=== PATIENT | female | born 1955 | race Caucasian/White ===

== ENCOUNTER 2016-07-04 12:54 | Inpatient (IN) | payer BC ==
--- NOTE | ~2016-07-04 | DS ---
Discharge Summary [place] [address] [facility] [place]. [address] NAME: MURIEL RAMOS : 51 STATUS : DIS IN PAT#: [id number] AGE: 60 ADM/REG DATE : 07/04/16 MR#: [id number] REPORT SERV DATE: 07/12/16 DICTATED BY: DEXTER PEREZ DATE: 07/11/16 REPORT STATUS : Draft TRANSCRIBED BY: MODL DATE: 07/11/16 ADMISSION DATE: 07/04/2016 DISCHARGE DATE: 07/11/2016 DISCHARGE DIAGNOSES: 1. Acute on chronic hypoxemic respiratory failure requiring intubation, mechanical ventilation. 2. Acute on chronic systolic and diastolic congestive heart failure with echocardiographic ejection fraction of 31%. Moderate left ventricular diastolic dysfunction. 3. Acute exacerbation of chronic obstructive pulmonary disease. 4. Per Intensive Care physician, likely septic shock present on admission. 5. Oropharyngeal dysphagia. 6. Chronic anemia. 7. Coronary artery disease, post coronary artery bypass graft x1. 8. Previous mitral valve replacement, with adequately functioning mitral valve prosthesis on echocardiography. 9. Moderate aortic stenosis by echocardiography. 10.Chronic pain disorder. 11.Weight loss. 12.History of PICC-induced deep venous thrombosis. 13.History of Clostridium difficile. 14.History of fibromyalgia. 15.History of bipolar disorder. 16.History of duodenal ulcer. OPERATION/PROCEDURES: Intubation and mechanical ventilation. HISTORY OF PRESENT ILLNESS: This is a 60-year-old white female who was triaged in the emergency room on 07/04/2016, at 1205 hours. In the emergency room, she was immediately seen by Dr. Michele Garcia. The patient was writhing on the stretcher. She was screaming for help. She was severely tachypneic and pereyra. She had extensive perioral cyanosis. Her O2 saturation was said to be 32% on a non-rebreather. Rapid sequence intubation was done. She was placed on mechanical ventilation. Critical Care was consulted, and she was seen by Dr. Jovi Schneider and admitted as described on admission history and physical examination. ADDITIONAL HISTORY: Per Dr. Schneider. PHYSICAL EXAMINATION: Per Dr. Schneider. ADMISSION LABORATORY: Per Dr. Schneider. HOSPITAL COURSE: She was managed in the Intensive Care Unit by the intensive care unit physicians in addition to [facility]. Her hospital course from admission through 07/06/2016, is as outlined on interim summary Discharge Summary [facility] [address] [place]. [address] NAME: MURIEL RAMOS : 51 STATUS : DIS IN PAT#: [id number] AGE: 60 ADM/REG DATE : 07/04/16 MR#: [id number] REPORT SERV DATE: 07/12/16 DICTATED BY: DEXTER PEREZ DATE: 07/11/16 REPORT STATUS : Draft TRANSCRIBED BY: MODL DATE: 07/11/[address] Serenity Wells. Her hospitalist care was assumed by the undersigned on 07/07/2016, and she was followed until discharge. There was a slow, but steady improvement in her dyspnea, cough, and sputum production such that by the time of discharge, she had an O2 saturation on room air of 92% and clear lungs on exam. A chest x-ray done on 07/08/2016, showed no acute cardiopulmonary disease. She has some mild oropharyngeal dysphagia based on a modified barium swallow study done on 07/09/2016. Mechanical soft diet with chopped meats with gravy and thin liquids was recommended by Speech Therapy. On , she was also followed by [facility] Cardiology. On 07/04/2016, she had a BNP of 1727 and on 07/07/2016, 2423.7. Her heart failure medications were adjusted and her diuretic therapy was intensified. Her chest x-ray findings on 07/08/2016, as noted and on 07/10/2016, a BNP was 275.8. With aggressive treatment of her heart failure, she developed some hypotension, which resolved with medication adjustment. Her renal function remained normal while hospitalized. Discharge BMP: Sodium 139, potassium 4.5, chloride 103, CO2 of 32, BUN 20, creatinine 0.63, glucose 87, calcium 9.1. She has mild chronic anemia. On admission, her white blood cell count was 13.5, and 10.9 at discharge, hemoglobin 10.9 on admission and 11.1 at discharge, platelet count respectively 435 and 403. An anemia evaluation included an iron of 37, TIBC of 451, ferritin 46, B12 of 786, TSH low at 0.2 with a normal free T4 of 1.04. An LDH was mildly elevated at 245 and a serum protein electrophoresis did not demonstrate any monoclonal gammopathy. She was seen by Physical Therapy on 07/07/2016. Home with Home Health Care PT was recommended. On 07/11/2016, she was stronger. She was walking in the watters. Respiratory symptoms had improved as noted. She had a good appetite. Her vital signs were stable. She was seen by Cardiology and released. She was seen by the undersigned and it was felt she had achieved a level of improvement and stability where she could be safely discharged home to be seen by her primary care physician next week. She will also follow up with her exam proctor, Dr. Garcia and station worker, Dr. Fall. She will continue her home diet and activity. Home Health Care was arranged at discharge for home evaluation, medication reconciliation, Discharge Summary [address] [address] NAME: MURIEL RAMOS : 51 STATUS : DIS IN PAT#: [id number] AGE: 60 ADM/REG DATE : 07/04/16 MR#: [id number] REPORT SERV DATE: 07/12/16 DICTATED BY: DEXTER PEREZ DATE: 07/11/16 REPORT STATUS : Draft TRANSCRIBED BY: CARIE DATE: 07/11/16 PT evaluation, and treatment. DISCHARGE MEDICATIONS: Pending outpatient followup. Aspirin 81 mg daily, Coreg 3.125 mg daily, Lasix 40 mg daily, multivitamin daily, albuterol nebs every four hours, Serevent Diskus one puff every 12 hours, potassium 20 mEq daily, Zocor 40 mg daily, Spiriva HandiHaler one capsule daily, Ceftin 500 mg twice daily for three days starting 07/12/2016, noting she received seven days of Rocephin while hospitalized and five days of azithromycin. She has home O2 previously prescribed by her station worker, Dr. Daniel Fall. The patient does not know the name of her primary care physician in [place]. Discharge time greater than 30 minutes. DICTATED BY: Dexter Perez M.D. DD/CARIE Dexter Perez M.D. / [id number] CC: Dexter Perez M.D. MD Adonay Jackson M.D. Donald Garcia M.D.
--- NOTE | ~2016-07-04 | EHP ---
ER History and Physical [address] [address] NAME: MURIEL RAMOS : 51 STATUS : ADM IN [facility]#: [id number] AGE: 60 ADM/REG DATE : 07/04/16 MR#: [id number] REPORT SERV DATE: 07/04/16 DICTATED BY: TANNER WALSH DATE: 07/04/16 REPORT STATUS : Draft TRANSCRIBED BY: MODL DATE: 07/04/16 CHIEF COMPLAINT: Shortness of breath. HISTORY OF PRESENT ILLNESS: The patient is a 60-year-old white female with known history of COPD and CHF that presented with shortness of breath in extremis by EMS per the family. Complains of some shortness of breath and has been extremely stressed recently. I went immediately to evaluate the patient upon arrival here, she was writhing on the stretcher, screaming help me, was severely tachypneic and pereyra as well as extensive perioral cyanosis. The patient was unable to be calmed down, was very agitated and combative with staff. Because of this, patient was rapid sequentially intubated. About the time the decision was made for rapid sequence intubation, we were able to obtain a good waveform. O2 saturation that showed O2 saturation at 32% on a non-rebreather. Non-rebreather was intermittently on the patient as she would continue to pull it off. Limited history was able to be obtained secondary to the patient's status. EMS states they were called for patient with chest pain and shortness of breath. Upon their arrival, they found the patient as above, writhing, screaming help me, and complaining of chest pain, and was extremely diaphoretic. EKG done at the scene shows several ST-segment depressions consistent with global ischemia. Once the patient was intubated, her O2 saturation went up to 100 and her respiratory status improved and clinical picture improved. Due to the patient's extremis upon arrival and diaphoresis, there was concern for both myocardial infarction as well as possibly an aortic dissection, so the patient was transferred to the CAT scan expeditiously for evaluation of thoracic aortic aneurysm as well as to rule out a PE. I was concerned possibly that the patient had a pulmonary embolism secondary to the acute onset and profound hypoxemia that she had. This as well as her chest x-ray showed some bilateral edema pattern, worse on the left. Some history was gathered by the daughter who arrived, although she is a limited history as well, but does state that the patient recently has had significant family stress as well as a history of CHF and COPD. This raises the question whether this possibly Takotsubo's congestive heart failure given that she has bilateral edema. PAST MEDICAL HISTORY: COPD, CHF, and tobacco abuse disorder. PAST SURGICAL HISTORY: Evidence of CABG. PHYSICAL EXAMINATION: GENERAL: Upon arrival here, as above writhing in bed, cyanotic, postintubation reveals bilateral breath sounds. ABDOMEN: Soft. NEUROLOGIC: The patient had no focal deficits upon arrival, but was altered. EXTREMITIES: No cyanosis, clubbing, or edema. SKIN: Warm and dry. Cyanosis on arrival, but after intubation was pink and warm. DATA: Labs are fairly unremarkable except for BNP of 1700 except her lactate sepsis of 2.5. White count 13.5, procalcitonin is unremarkable. Chest x-ray reveals bilateral edema, worse on the left. CT scan shows this as well. ABG shows relative hypoxemia with a PO2 of 234 on 100% FiO2. ER History and Physical [address] [address] NAME: MURIEL RAMOS : 51 STATUS : ADM IN [facility]#: [id number] AGE: 60 ADM/REG DATE : 07/04/16 MR#: [id number] REPORT SERV DATE: 07/04/16 DICTATED BY: TANNER WALSH DATE: 07/04/16 REPORT STATUS : Draft TRANSCRIBED BY: CARIE DATE: 07/04/16 ASSESSMENT: 1. Profound hypoxemic respiratory failure. 2. Pulmonary edema versus atypical infiltrates. 3. Leukocytosis. 4. Sepsis syndrome meeting SIRS criteria. 5. Hypertension. PLAN: Admit the patient to ICU. Discussed this case with Dr. Schneider. He has actually seen the patient in the ER here. See the paper chart for full details of rapid sequence intubation as well as the central line that was needed secondary to the patient's hypertension. Please document greater than 45 minutes critical care time in efforts of resuscitation and stabilization of this patient outside of any billable procedures. DUONG/CARIE Tanner Walsh DO / [id number] CC: DO Gui Vigil MD
--- NOTE | ~2016-07-04 | HP ---
History And Physical [place] [address] [facility] [place]. [address] NAME: MURIEL RAMOS : 51 STATUS : ADM IN [facility]#: [id number] AGE: 60 ADM/REG DATE : 07/04/16 MR#: [id number] REPORT SERV DATE: 07/04/16 DICTATED BY: JOVI SCHNEIDER DATE: 07/04/16 REPORT STATUS : Draft TRANSCRIBED BY: MODOlivia DATE: 07/04/16 DATE OF ADMISSION: 07/04/2016 HISTORY OF PRESENT ILLNESS: A 60-year-old white female sent to the hospital because of shortness of breath and chest pain that occurred today. This is approximately her third admission for this year. She is speaking to the daughter, I guess the patient has been admitted for CHF a couple of different times this year at other hospitals. 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 Garcia and also sees Dr. Adonay Fall as Pulmonology for her known COPD/emphysema. The patient was very hypoxic when she got here and had to be intubated through a rapid sequence intubation and put on the ventilator. She is currently sedated with propofol. She was sent to the scanner for CTA of her chest that showed no evidence of a pulmonary embolism, but did show some asymmetric pulmonary infiltrates that could be consistent with edema or pneumonia, and she also has a small pleural effusion as well. She had a leukocytosis, so the emergency room did give the patient Rocephin and azithromycin for the presumed pneumonia. Daughter did state that the patient had been feeling warm, diaphoretic, but no documented fever at home, and she were afebrile in the emergency room. She has borderline low normal blood pressure currently and the ER doctor did put in a central line for IV access. The working diagnosis in the emergency room was congestive heart failure given the CT scan findings, her known medical history, and the fact that her BNP was very elevated. REVIEW OF SYSTEMS: Unable to be obtained, otherwise. PAST MEDICAL HISTORY: CHF, COPD/emphysema, hypertension. Daughter denies that the patient has had any history of coronary artery disease, MA, stroke, cancers, or other kidney, colon, or liver problems. She does have a history of acid reflux, however. SOCIAL HISTORY: Lives with daughter. Former heavy smoker, but she does currently dip. No alcohol or illicit drug use. ALLERGIES: REVIEWED. MEDICATIONS: Reviewed. FAMILY HISTORY: There is cancer in the family. PHYSICAL EXAMINATION: VITAL SIGNS: Per nursing flow sheet. GENERAL: No acute distress. Sedated on propofol. HEENT: Normocephalic, atraumatic. Pupils are equal, round, and reactive to light. NECK: Trachea midline. No palpable lymph nodes or masses. HEART: Regular rate and rhythm. No murmurs. LUNGS: Diminished bilaterally. No wheezes. No accessory muscle use. Ventilator settings History And Physical [address] [address] NAME: MURIEL RAMOS : 51 STATUS : ADM IN [facility]#: [id number] AGE: 60 ADM/REG DATE : 07/04/16 MR#: [id number] REPORT SERV DATE: 07/04/16 DICTATED BY: JOVI SCHNEIDER DATE: 07/04/16 REPORT STATUS : Draft TRANSCRIBED BY: CARIE DATE: 07/04/16 reviewed. GASTROINTESTINAL: Soft, nontender, nondistended. No guarding, rebound, or rigidity. EXTREMITIES: No edema, cyanosis, or clubbing. SKIN: No obvious rash. NEUROLOGIC: Unable to examine. LABORATORY DATA: Labs and radiology studies reviewed. ASSESSMENT AND PLAN: 1. Acute hypoxic respiratory failure. 2. Probable nyosi-un-yqaofub congestive heart failure exacerbation. 3. Chronic obstructive pulmonary disease/emphysema with exacerbation. 4. Small pleural effusion. 5. Leukocytosis. 6. Tobacco abuse. The patient is on the ventilator, sedated. We will recheck an arterial blood gas and make ventilator adjustments accordingly. Chest x-ray to follow ET tube position and see if these infiltrates will clear. We will give the patient 1 mg of Bumex to see if this is diuresable. The patient is on empiric antibiotics in case this is pneumonia. Blood cultures, sputum, and urine will be obtained along with urine antigens for Strep and Legionella. The patient will get deep venous thrombosis and gastrointestinal prophylaxis. Cardiology consult with Dr. Garcia, and we will also get a 2D echocardiogram. Medicine reconciliation was performed, and the patient also be on bronchodilators and IV steroids. Greater than 31 minutes of critical care time. CEP/MODL Jovi Schneider DO / [id number] CC: DO Gui Vigil MD
--- NOTE | ~2016-07-04 | IDS ---
Interim Discharge Summary [address] [place]. [address] NAME: MURIEL RAMOS : 51 STATUS : ADM IN PAT#: [id number] AGE: 60 ADM/REG DATE : 07/04/16 MR#: [id number] REPORT SERV DATE: 07/06/16 DICTATED BY: ELIZABETH PINEDA DATE: 07/06/16 REPORT STATUS : Draft TRANSCRIBED BY: MODL DATE: 07/06/16 ADMISSION DATE: 07/04/2016 DISCHARGE DATE: PULMONARY AND CRITICAL CARE DATE OF TRANSFER: To the floor, 07/06/2016. Please see Dr. Schneider's detailed admitting history and physical for information with regard to Ms. Ramos' original hospitalization. HISTORY OF PRESENT ILLNESS: She is a 60-year-old with underlying COPD and CHF, who was admitted for acute hypoxemic respiratory failure, requiring mechanical ventilation. I initially saw her on Tuesday morning and we began diuresis as well as daily weaning trials on minimal sedation. She was successfully extubated on 07/05/2016, and has been monitored in the CCU on continuous nasal oxygen over the last 24 hours and is doing well. She is now moving to the telemetry floor for ongoing rehabilitation and oxygen weaning. ACTIVE PROBLEM LIST: 1. Acute hypoxemic respiratory failure, likely secondary to acute on chronic exacerbation of congestive heart failure. She extubated on 07/05/2016, as above, and is continuing to diurese well. She is now negative status post Bumex. 2. COPD with acute exacerbation. She is on Solu-Medrol and was changed to prednisone daily yesterday and will require a slow taper. She is on bronchodilator nebs. 3. Small pleural effusion, likely secondary to volume overload. Continue to monitor closely. May ultimately require thoracentesis; however, we anticipate this will continue to resolve with ongoing volume removal via diuresis. 4. Likely septic shock. She has responded well to antibiotics, this is day three of azithromycin and Rocephin. We will continue a full five-day course. Her sputum culture showed rare Gram positives only and blood cultures have been negative. White blood cell has been trending down with antibiotics, although it may peak with ongoing administration of corticosteroids. 5. Tobacco abuse. Ongoing counseling. 6. Prophylaxis on Lovenox and proton pump inhibitor. She is a full code. She has morning labs ordered for tomorrow and the hospitalist navigator has been notified of her transfer to the floor. Please call with any questions. AMERICA/CARIE Elizabeth Pineda MD Interim Discharge Summary [address] [address] NAME: MURIEL RAMOS : 51 STATUS : ADM IN PAT#: [id number] AGE: 60 ADM/REG DATE : 07/04/16 MR#: [id number] REPORT SERV DATE: 07/06/16 DICTATED BY: ELIZABETH PINEDA DATE: 07/06/16 REPORT STATUS : Draft TRANSCRIBED BY: CARIE DATE: 07/06/16 / [id number] CC: Jovi Schneider DO
--- NOTE | ~2016-07-04 | CN ---
Consultation Report [place] [address] [facility] [place]. [address] NAME: MURIEL RAMOS : 51 STATUS : ADM IN PAT#: [id number] AGE: 60 ADM/REG DATE : 07/04/16 MR#: [id number] REPORT SERV DATE: 07/04/16 DICTATED BY: ZACH BIANCHI DATE: 07/04/16 REPORT STATUS : Draft TRANSCRIBED BY: MODL DATE: 07/04/16 CARDIOLOGY CONSULTATION DATE OF CONSULTATION: 07/04/2016 REQUESTING PROVIDER: Dr. Jovi Schneider. BURNISHING MACHINE OPERATOR: Dr. Donald Garcia. INDICATIONS: Hypoxic respiratory failure. HISTORY OF PRESENT ILLNESS: Muriel Ramos is a 60-year-old female, who presented to the emergency room with severe shortness of breath, and required emergent intubation in the ER. She is now on ventilatory support. She has apparently been short of breath for couple of days, but acutely short of breath today. She has had previous hospitalizations. She has a background of COPD, emphysema, valvular heart disease, and some degree of cardiomyopathy. Currently, she is comfortable in the ICU respiratory support, breathing 16 times a minute at 0.4 FiO2 with 100% oxygen saturation. Apparently, there have been no fevers or chills. No syncope. There is some report of chest pain at some point. Otherwise, history is difficult to be comprehensively obtained as the patient is intubated and no family members present. PAST MEDICAL HISTORY: COPD, bioprosthetic mitral valve with previous bypass graft to the RCA, moderate aortic stenosis, previous smoking, cardiomyopathy with an ejection fraction between 35% and 45%. HOME MEDICATIONS: Albuterol, aspirin, Coreg, Lasix, Klor-Con, Spiriva. ALLERGIES: PENICILLIN AND CODEINE. SOCIAL HISTORY: Former smoker. Apparently uses oral tobacco at the present time. FAMILY HISTORY: Noted for some relatives with cardiac disease. REVIEW OF SYSTEMS: As per the HPI. Unable to be comprehensively obtained. ECG is sinus rhythm with left atrial enlargement, poor R-wave progression, and nonspecific ST-T changes. CTA chest demonstrates edema versus infiltrate, left greater than right, but no pulmonary embolism. Consultation Report [place] [address] [facility] [place]. [address] NAME: MURIEL RAMOS : 51 STATUS : ADM IN PAT#: [id number] AGE: 60 ADM/REG DATE : 07/04/16 MR#: [id number] REPORT SERV DATE: 07/04/16 DICTATED BY: ZACH BIANCHI DATE: 07/04/16 REPORT STATUS : Draft TRANSCRIBED BY: CARIE DATE: 07/04/16 PHYSICAL EXAMINATION: VITAL SIGNS: Blood pressure 104/58, on norepinephrine, heart rate 68, respiratory rate 16. GENERAL: Appears stated age, no distress. EYES: Sclerae anicteric, no arcus senilis. MOUTH: Oral mucosa moist, lips acyanotic. NECK: Jugular venous pressure normal, no carotid bruits. LUNGS: Mostly clear anterior, normal inspiratory effort. CARDIAC: Regular rate and regular rhythm with a 3/6 systolic ejection murmur. No gallops or rubs. ABDOMEN: Soft, nondistended, nontender. EXTREMITIES: No edema. SKIN: Warm and dry. NEURO/PSYCH: The patient is sedated. Alert and oriented, nonfocal, mood appropriate. LABORATORY AND DIAGNOSTIC STUDIES: Sodium is 140, potassium 4.3, creatinine 0.75, troponin 0.04, procalcitonin is less than 0.05. BNP 1727. White count 13.5. Hemoglobin 10.5, platelets 435. IMPRESSION: 1. Hypoxic respiratory failure, currently intubated/ventilated in the ICU. 2. Chronic obstructive pulmonary disease with respiratory treatments per Pulmonary Services. 3. Possible pneumonia, currently being treated with antibiotics. 4. Elevated BNP, treat with diuretics. 5. Hypertension, blood pressure with norepinephrine. 6. Moderate aortic stenosis in a patient with history of bioprosthetic mitral valve, ejection fraction of 35% to 45%. Previous bypass grafting. We will repeat echocardiogram. We will follow. JOSE F/CARIE Zach Bianchi M.D. / [id number] CC: DO Gui Vigil MD
[~2016-07-04 12:54] MED LIST: *UNABLE2; ACCUNEB INH; ADVAIR250 INH; ALBUTEROL0.083 % INH; ASA5GR PO; ASAB PO; BUM5 PO; CARDCD180 PO; CARTIA XT300 MG/24 PO; CAT1 PO; CAT2 PO; COREG12 PO; COREG6 PO; COZAAR100 MG PO; ESTRACE1 MG PO; GYNODIOL2 MG PO; HALF81 PO; HYDROCHLOROT12.5 MG PO; KLOR-CON 1010 MEQ PO; KLOR-CON M2020 MEQ PO; L40 PO; LIPITOR40 PO; LISINOPRIL40 MG PO; MAGOX4 PO; MEDROLPAK4 PO; MICROZIDE PO; MULTIVIT/MIN PO; NEUR300 PO; P10; PR25 PO; PRILOSEC40 MG PO; PROVENTSOL INH; SEREVDISC INH; SPIRIVA INH; UN; ZOCOR40 PO
[2016-07-04 13:56] LABS: BASOPHILS 0.7 %; BASOPHILS ABSOLUTE 0.09 10/3/uL (0.0-0.16); EOSINOPHILS 2.7 %; EOSINOPHILS ABSOLUTE 0.37 10/3/uL (0.0-0.53); ER CBC TAT 0 Hrs 07 Mins; HEMATOCRIT 35.5 % (36.0-48.0); HEMOGLOBIN 10.9 g/dL (12.0-16.0); IMMATURE GRANULOCYTES 0.4 %; IMMATURE GRANULOCYTES ABSOLUTE 0.06 10/3/uL (0.0-0.11); LYMPHOCYTES 19.1 %; LYMPHOCYTES ABSOLUTE 2.58 10/3/uL (0.67-4.30); MANUAL DIFF NO %; MEAN CORPUS HGB CONC 30.7 g/dL (32.0-36.0); MEAN CORPUSCULAR HEMOGLOB 26.2 pg (26.0-34.0); MEAN CORPUSCULAR VOLUME 85.3 fL (80-100); MEAN PLATELET VOLUME 9.3 fL (9.2-13.0); NEUTROPHILS 74.1 %; NEUTROPHILS ABSOLUTE 10.03 10/3/uL (2.02-8.40); PLATELET COUNT 435 10/3/uL (150-400); RBC DISTRIBUTION WIDTH 13.8 % (12.0-16.0); RED CELL COUNT 4.16 10/6/uL (4.0-5.6); WHITE BLOOD CELLS 13.5 10/3/uL (4.5-10.5)
[2016-07-04 14:03] LABS: INTERNATIONAL NORMAL RATI 1.1 UNITS (-); PARTIAL THROMBO TIME 28.1 SEC (22.5-37.2); PROTIME (NOT ORD) 13.8 SEC (12.0-14.5)
[2016-07-04 14:12] LABS: A/G RATIO 0.9 (0.7-1.9); ALBUMIN 3.1 G/DL (3.5-5.0); ALKALINE PHOSPHATASE 82 U/L (45-117); BUN (BLOOD UREA NITROGEN) 12 MG/DL (6-23); CALCIUM, SERUM 8.3 MG/DL (8.5-10.4); CHLORIDE, SERUM 106 MMOL/L (96-112); CO2 (CARBON DIOXIDE) 27 MMOL/L (24-34); CREATININE 0.75 MG/DL (0.55-1.02); GFR AFRICAN AMERICAN 99 ML/MIN (>=60); GFR NON AFRICAN AMERICAN 85 ML/MIN (>=60); GLOBULIN 3.5 G/DL (2.5-4.1); GLUCOSE, SERUM 179 MG/DL (60-99); POTASSIUM, SERUM 4.3 MMOL/L (3.5-5.3); SGOT(AST) 34 U/L (5-40); SGPT(ALT) 22 U/L (5-65); SODIUM, SERUM 140 MMOL/L (135-148); TOTAL BILIRUBIN 0.5 MG/DL (0-1.2); TOTAL PROTEIN 6.6 G/DL (6.0-8.5); TROPONIN I 0.04 NG/ML (<0.05)
[2016-07-04 14:15] LABS: LACTATE 2.5 MMOL/L (0.3-2.4)
[2016-07-04 14:35] LABS: PROCALCITONIN < 0.05 ng/mL (<0.5)
[2016-07-04 18:05] LABS: ASCORBIC ACID (UR NOT ORDER) NEG (NEG); BILIRUBIN, URINE NEGATIVE (NEG); KETONE, URINE NEGATIVE (NEG); LEUKOCYTE ESTERASE(NOT OR NEG (NEG); WBC (NOT ORDERED) (RFLEX) < 1 (0-5)
[2016-07-05 04:40] LABS: BASOPHILS 0.1 %; BASOPHILS ABSOLUTE 0.01 10/3/uL (0.0-0.16); EOSINOPHILS 0 %; HEMATOCRIT 34.1 % (36.0-48.0); HEMOGLOBIN 10.9 g/dL (12.0-16.0); IMMATURE GRANULOCYTES 0.2 %; IMMATURE GRANULOCYTES ABSOLUTE 0.02 10/3/uL (0.0-0.11); LYMPHOCYTES 8.8 %; LYMPHOCYTES ABSOLUTE 0.88 10/3/uL (0.67-4.30); MEAN CORPUSCULAR HEMOGLOB 26.3 pg (26.0-34.0); MEAN PLATELET VOLUME 8.9 fL (9.2-13.0); MONOCYTES 0.3 %; MONOCYTES ABSOLUTE 0.03 10/3/uL (0.21-1.20); NEUTROPHILS 90.6 %; NEUTROPHILS ABSOLUTE 9.08 10/3/uL (2.02-8.40); RBC DISTRIBUTION WIDTH 13.8 % (12.0-16.0); RED CELL COUNT 4.14 10/6/uL (4.0-5.6)
[2016-07-05 04:44] LABS: MANUAL DIFF NO %; MEAN CORPUSCULAR VOLUME 82.4 fL (80-100); PLATELET COUNT 292 10/3/uL (150-400)
[2016-07-05 04:57] LABS: CALCIUM, SERUM 8.6 MG/DL (8.5-10.4); CHLORIDE, SERUM 107 MMOL/L (96-112); CO2 (CARBON DIOXIDE) 25 MMOL/L (24-34); CREATININE 0.62 MG/DL (0.55-1.02); GFR AFRICAN AMERICAN 112 ML/MIN (>=60); GFR NON AFRICAN AMERICAN 97 ML/MIN (>=60); PHOSPHORUS, SERUM 4.5 MG/DL (2.5-4.5); POTASSIUM, SERUM 4.1 MMOL/L (3.5-5.3); SODIUM, SERUM 142 MMOL/L (135-148)
[2016-07-05 05:03] LABS: BUN (BLOOD UREA NITROGEN) 17 MG/DL (6-23); GLUCOSE, SERUM 117 MG/DL (60-99)
[2016-07-06 03:40] LABS: BASOPHILS 0.2 %; BASOPHILS ABSOLUTE 0.03 10/3/uL (0.0-0.16); EOSINOPHILS 0.5 %; EOSINOPHILS ABSOLUTE 0.06 10/3/uL (0.0-0.53); HEMOGLOBIN 9.4 g/dL (12.0-16.0); IMMATURE GRANULOCYTES 0.3 %; IMMATURE GRANULOCYTES ABSOLUTE 0.04 10/3/uL (0.0-0.11); LYMPHOCYTES 20.1 %; LYMPHOCYTES ABSOLUTE 2.46 10/3/uL (0.67-4.30); MEAN CORPUS HGB CONC 32.2 g/dL (32.0-36.0); MEAN CORPUSCULAR HEMOGLOB 26.6 pg (26.0-34.0); MEAN CORPUSCULAR VOLUME 82.5 fL (80-100); MEAN PLATELET VOLUME 8.9 fL (9.2-13.0); MONOCYTES 7.7 %; MONOCYTES ABSOLUTE 0.94 10/3/uL (0.21-1.20); NEUTROPHILS 71.2 %; NEUTROPHILS ABSOLUTE 8.73 10/3/uL (2.02-8.40); PLATELET COUNT 285 10/3/uL (150-400); RBC DISTRIBUTION WIDTH 14.1 % (12.0-16.0); RED CELL COUNT 3.54 10/6/uL (4.0-5.6); WHITE BLOOD CELLS 12.3 10/3/uL (4.5-10.5)
[2016-07-06 03:42] LABS: HEMATOCRIT 29.2 % (36.0-48.0); MANUAL DIFF NO %
[2016-07-06 03:49] LABS: BUN (BLOOD UREA NITROGEN) 20 MG/DL (6-23); CALCIUM, SERUM 8.4 MG/DL (8.5-10.4); CHLORIDE, SERUM 105 MMOL/L (96-112); CO2 (CARBON DIOXIDE) 28 MMOL/L (24-34); CREATININE 0.54 MG/DL (0.55-1.02); GFR AFRICAN AMERICAN 117 ML/MIN (>=60); GFR NON AFRICAN AMERICAN 101 ML/MIN (>=60); POTASSIUM, SERUM 3.7 MMOL/L (3.5-5.3); SODIUM, SERUM 141 MMOL/L (135-148)
[2016-07-06 03:56] LABS: GLUCOSE, SERUM 92 MG/DL (60-99); PHOSPHORUS, SERUM 3.3 MG/DL (2.5-4.5)
[2016-07-06 04:38] LABS: PROCALCITONIN 0.25 ng/mL (<0.5)
[2016-07-07 05:46] LABS: BUN (BLOOD UREA NITROGEN) 19 MG/DL (6-23); CHLORIDE, SERUM 103 MMOL/L (96-112); CO2 (CARBON DIOXIDE) 32 MMOL/L (24-34); CREATININE 0.49 MG/DL (0.55-1.02); GFR AFRICAN AMERICAN 121 ML/MIN (>=60); GFR NON AFRICAN AMERICAN 104 ML/MIN (>=60); GLUCOSE, SERUM 90 MG/DL (60-99); POTASSIUM, SERUM 3.7 MMOL/L (3.5-5.3); SODIUM, SERUM 142 MMOL/L (135-148)
[2016-07-07 18:26] LABS: T PROTEIN (ELECT)(NOT OR 7.6 G/DL (6.0-8.5)
[2016-07-07 18:50] LABS: FREE T4 1.04 NG/DL (0.76-1.46); ULTRASENSITIVE TSH 0.2 MCIU/ML (0.358-3.740)
[2016-07-08 04:08] LABS: BASOPHILS 0.1 %; BASOPHILS ABSOLUTE 0.01 10/3/uL (0.0-0.16); EOSINOPHILS 0.2 %; EOSINOPHILS ABSOLUTE 0.02 10/3/uL (0.0-0.53); IMMATURE GRANULOCYTES 0.2 %; IMMATURE GRANULOCYTES ABSOLUTE 0.03 10/3/uL (0.0-0.11); LYMPHOCYTES 23.2 %; LYMPHOCYTES ABSOLUTE 2.79 10/3/uL (0.67-4.30); MEAN CORPUS HGB CONC 31.4 g/dL (32.0-36.0); MEAN CORPUSCULAR HEMOGLOB 25.9 pg (26.0-34.0); MEAN CORPUSCULAR VOLUME 82.5 fL (80-100); MEAN PLATELET VOLUME 9.3 fL (9.2-13.0); MONOCYTES 8.9 %; MONOCYTES ABSOLUTE 1.07 10/3/uL (0.21-1.20); NEUTROPHILS 67.4 %; NEUTROPHILS ABSOLUTE 8.11 10/3/uL (2.02-8.40); PLATELET COUNT 349 10/3/uL (150-400)
[2016-07-08 04:11] LABS: HEMATOCRIT 37.3 % (36.0-48.0); HEMOGLOBIN 11.7 g/dL (12.0-16.0); MANUAL DIFF NO %; RED CELL COUNT 4.52 10/6/uL (4.0-5.6)
[2016-07-08 04:17] LABS: BUN (BLOOD UREA NITROGEN) 19 MG/DL (6-23); CALCIUM, SERUM 8.9 MG/DL (8.5-10.4); CHLORIDE, SERUM 101 MMOL/L (96-112); CO2 (CARBON DIOXIDE) 33 MMOL/L (24-34); CREATININE 0.48 MG/DL (0.55-1.02); GFR AFRICAN AMERICAN 122 ML/MIN (>=60); GFR NON AFRICAN AMERICAN 105 ML/MIN (>=60); GLUCOSE, SERUM 90 MG/DL (60-99); POTASSIUM, SERUM 3.7 MMOL/L (3.5-5.3); SODIUM, SERUM 141 MMOL/L (135-148)
[2016-07-08 11:50] LABS: A/G 1.32 RATIO (0.9-2.10); ALB RELATIVE % 56.9 % (60.0-89.0); ALBUMIN (ELECTRO) 4.32 GM/DL (3.2-5.5); ALPHA 2 (ELECTRO) 1.08 GM/DL (0.5-1.10); ALPHA 2 RELAT % 14.2 % (4.5-26.0); BETA GLOBULIN (SPE) 0.88 GM/DL (0.60-1.30); BETA RELATIVE % 11.6 % (9.0-22.0); GAMMA GLOBULIN (SPE) 1.01 G/DL (0.70-1.60); GAMMA RELAT % 13.3 % (6.0-22.0)
[2016-07-09 05:35] LABS: CALCIUM, SERUM 9.4 MG/DL (8.5-10.4); CHLORIDE, SERUM 100 MMOL/L (96-112); CREATININE 0.65 MG/DL (0.55-1.02); GFR AFRICAN AMERICAN 110 ML/MIN (>=60); GFR NON AFRICAN AMERICAN 95 ML/MIN (>=60); GLUCOSE, SERUM 89 MG/DL (60-99); POTASSIUM, SERUM 4.4 MMOL/L (3.5-5.3); SODIUM, SERUM 136 MMOL/L (135-148)
[2016-07-09 05:37] LABS: BUN (BLOOD UREA NITROGEN) 23 MG/DL (6-23); CO2 (CARBON DIOXIDE) 27 MMOL/L (24-34)
[2016-07-10 05:21] LABS: CALCIUM, SERUM 8.7 MG/DL (8.5-10.4); CHLORIDE, SERUM 103 MMOL/L (96-112); CO2 (CARBON DIOXIDE) 30 MMOL/L (24-34); CREATININE 0.65 MG/DL (0.55-1.02); GFR AFRICAN AMERICAN 110 ML/MIN (>=60); GFR NON AFRICAN AMERICAN 95 ML/MIN (>=60); GLUCOSE, SERUM 92 MG/DL (60-99); POTASSIUM, SERUM 4.2 MMOL/L (3.5-5.3); SODIUM, SERUM 137 MMOL/L (135-148)
[2016-07-10 05:22] LABS: BUN (BLOOD UREA NITROGEN) 30 MG/DL (6-23)
[2016-07-11 06:34] LABS: CALCIUM, SERUM 9.1 MG/DL (8.5-10.4); CHLORIDE, SERUM 103 MMOL/L (96-112); CO2 (CARBON DIOXIDE) 32 MMOL/L (24-34); CREATININE 0.63 MG/DL (0.55-1.02); GFR AFRICAN AMERICAN 111 ML/MIN (>=60); GFR NON AFRICAN AMERICAN 96 ML/MIN (>=60); GLUCOSE, SERUM 87 MG/DL (60-99); POTASSIUM, SERUM 4.5 MMOL/L (3.5-5.3); SODIUM, SERUM 139 MMOL/L (135-148)
[2016-07-11 06:35] LABS: BUN (BLOOD UREA NITROGEN) 20 MG/DL (6-23)
[2016-07-11 08:36] LABS: BASOPHILS 0.9 %; EOSINOPHILS 2.7 %; EOSINOPHILS ABSOLUTE 0.29 10/3/uL (0.0-0.53); HEMATOCRIT 35.5 % (36.0-48.0); HEMOGLOBIN 11.1 g/dL (12.0-16.0); IMMATURE GRANULOCYTES 0.5 %; IMMATURE GRANULOCYTES ABSOLUTE 0.05 10/3/uL (0.0-0.11); LYMPHOCYTES 26.4 %; LYMPHOCYTES ABSOLUTE 2.87 10/3/uL (0.67-4.30); MEAN CORPUS HGB CONC 31.3 g/dL (32.0-36.0); MEAN CORPUSCULAR HEMOGLOB 25.9 pg (26.0-34.0); MEAN CORPUSCULAR VOLUME 82.8 fL (80-100); MEAN PLATELET VOLUME 9.4 fL (9.2-13.0); MONOCYTES 12.3 %; MONOCYTES ABSOLUTE 1.34 10/3/uL (0.21-1.20); NEUTROPHILS 57.2 %; NEUTROPHILS ABSOLUTE 6.21 10/3/uL (2.02-8.40); PLATELET COUNT 403 10/3/uL (150-400); RBC DISTRIBUTION WIDTH 14.4 % (12.0-16.0); RED CELL COUNT 4.29 10/6/uL (4.0-5.6); WHITE BLOOD CELLS 10.9 10/3/uL (4.5-10.5)
[2016-07-11 08:39] LABS: MANUAL DIFF NO %
[2016-07-11] MEDS ORDERED: COREG3 PO (14:26)
[2016-07-11] MEDS ORDERED: L40 PO (14:29)
[2016-07-11] MEDS ORDERED: ALBUTEROL5 INH (14:34)
[2016-07-11] MEDS ORDERED: SEREVDISC INH (14:35)
[2016-07-11] MEDS ORDERED: CEFT5 PO (14:38)
[2016-08-23] MEDS ORDERED: ALBUTEROL0.083 % INH (17:14)
[2016-08-23] MEDS ORDERED: ASAB PO (17:14)
[2016-08-23] MEDS ORDERED: KDUR20 PO (17:14)
[2016-08-23] MEDS ORDERED: L40 PO (17:14)
[2016-08-23] MEDS ORDERED: CENTRUM PO (17:14)
[2016-08-23] MEDS ORDERED: COREG3 PO (17:14)
[2016-08-23] MEDS ORDERED: CELEXA10 PO (17:15)
[2016-08-23] MEDS ORDERED: SPIRIVA INH (17:15)
[2016-08-23] MEDS ORDERED: PROVHFA PO (17:15)
[2016-08-23] MEDS ORDERED: ACET500CAP PO (17:15)
[2016-08-25] MEDS ORDERED: ZITH250 PO (10:47)
[2016-08-25] MEDS ORDERED: MAGOX4 PO (10:50)
[2016-08-25] MEDS ORDERED: MVI PO (10:50)
[2016-08-25] MEDS ORDERED: COZ25 PO (10:50)
[2016-08-25] MEDS ORDERED: P10 PO (10:51)
[2016-10-10] MEDS ORDERED: ULTRAM50 PO (09:46)
[2016-10-10] MEDS ORDERED: KDUR10 PO (09:46)
[2016-10-10] MEDS ORDERED: ATV1 PO (09:47)
[2016-10-10] MEDS ORDERED: TRAZ50 PO (09:47)
[2016-10-10] MEDS ORDERED: PR12.5 PO (09:47)
== END 2016-07-11 20:30 | disposition home health service (06) | DRG 871 ==
LOC: ER 12:54 → CCU 13:00 → 6NO 07-06 14:34
PROVIDERS: Hospitalist; Internal Medicine; Internal Medicine Cardiovascular Disease; Internal Medicine Critical Care Medicine; Internal Medicine Pulmonary Disease
PROC: 0BH17EZ Insertion of Endotracheal Airway into Trachea, Via Natural or Artificial Opening (ICD-10-PCS; principal; 2016-07-04)
PROC: 5A1935Z Respiratory Ventilation, Less than 24 Consecutive Hours (ICD-10-PCS; 2016-07-04)
DX: A41.9 Sepsis, unspecified organism (principal); R65.21 Severe sepsis with septic shock; J96.21 Acute and chronic respiratory failure with hypoxia; I50.23 Acute on chronic systolic (congestive) heart failure; J18.9 Pneumonia, unspecified organism; I42.9 Cardiomyopathy, unspecified; J44.1 Chronic obstructive pulmonary disease with (acute) exacerbation; I11.0 Hypertensive heart disease with heart failure; R13.12 Dysphagia, oropharyngeal phase; Z68.1 Body mass index [BMI] 19.9 or less, adult; F17.290 Nicotine dependence, other tobacco product, uncomplicated; I25.10 Atherosclerotic heart disease of native coronary artery without angina pectoris; D64.9 Anemia, unspecified; R63.4 Abnormal weight loss; I35.0 Nonrheumatic aortic (valve) stenosis; Z88.0 Allergy status to penicillin; Z95.2 Presence of prosthetic heart valve; Z95.1 Presence of aortocoronary bypass graft; Z88.5 Allergy status to narcotic agent
CPT/HCPCS: 31720; 36600; 71010; 71020; 71275; 74000; 74230; 80048; 80053; 80069; 80305; 80307; 81001; 82272; 82330; 82607; 82728; 82803; 82947; 83540; 83550; 83605; 83615; 83735; 83880; 84100; 84132; 84145; 84155; 84165; 84295; 84439; 84443; 84484; 85014; 85025; 85610; 85730; 87040; 87070; 87205; 87449; 87641; 92610-GN; 92611-GN; 93005; 93306; 94002; 94003; 94640; 94770; 97116-GP; 97162-GP; 97530-GP; 99291; A9270-GY; C9113; J0456; J2920; J3010; Q9967